=== PATIENT | male | born 1985 | race Caucasian/White ===

== ENCOUNTER 2021-01-05 14:55 | Emergency (ER) | payer OTHER, SELFPAY ==
[2021-01-05 14:57] VITALS: BP 160/103; PULSE 67; RESP 18; TEMP 36.8; O2SAT 97; BMI 24.1
--- NOTE | 2021-01-05 15:10 | ECG_ITS ---
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 Measurements Intervals [place] Rate: 62 P: 21 IN: 138 QRS: 37 QRSD: 93 T: 53 QT: 372 QTc: 380 Interpretive Statements SINUS RHYTHM NONSPECIFIC T-WAVE ABNORMALITY No previous ECG available for comparison Electronically Signed On 01-05-2021 17:42:11 VALUE STREAM MANAGER by Vilma Ott M.D. [id number] f
--- NOTE | 2021-01-05 15:10 | XR_ITS ---
WS: [id number] PORTABLE CHEST HISTORY: cp COMPARISON: None available. Lungs are clear and well expanded. No pleural effusion or pneumothorax. Cardiac size: Normal. Mediastinum/Aorta: Normal mediastinum. No osseous abnormality seen. XR/XR chest 1V portable [id number] IMPRESSION: Unremarkable portable chest.
--- NOTE | 2021-01-05 15:17 | W.ED.CHESTPA ---
HPI - Chest Pain General: Chief Complaint: Chest Pain Stated Complaint: L SHOULDER PAIN, ARM NUMBNESS X 3 DAYS Time Seen by Provider: 01/05/21 15:10 History of Present Illness: HPI narrative: The patient is a 35-year-old male with past medical history anxiety on propranolol who comes to the ER complaining of 3 days of left-sided chest pain radiating to his left arm. He says he called his primary care doctor who told him it is probably anxiety on Monday and to sleep it off. He did that but his pain persists and came to the ER because he is worried about it. He is a smoker but has no other medical problems besides anxiety. MD complaint: chest heaviness Onset: during rest Pain location: left chest Pain radiation: left arm Quality: sharp Exacerbating factors: nothing Associated symptoms: Reports no associated symptoms; Deny abdominal pain, dyspnea or palpitations Review of Systems General: Reports: 10 or more systems reviewed and unremarkable except in HPI and below Const: Denies: fatigue Eyes: Denies: change in vision, blurry vision or eye redness ENMT: Denies: throat pain, swelling of lips/tongue, ear or mastoid pain or nasal congestion Card: Denies: chest pain, palpitations, irregular heart rhythm, edema, dyspnea on exertion or orthopnea Resp: Denies: dyspnea, productive cough or non-productive cough GI: Denies: abdominal pain, diarrhea or GI cramping : Denies: flank pain, urinary frequency or urinary urgency Musc: Denies: neck pain, back pain, extremity pain, joint pain, joint redness, limited range of motion or muscle weakness Skin/Breast: Denies: rash, pruritus, erythema, skin pain or skin tenderness Neuro: Denies: headache(s), numbness in extremities, weakness in extremities, sensory changes, difficulty walking, dizziness, confusion or Slurred speech present Psych: Reports: anxiety; Denies: depression Endo: Denies: polyuria All/Imm: Denies: urticaria, throat swelling or tongue swelling Physical Exam Const: COMMON NORMALS: no acute distress, average body habitus, patient oriented x3, no limitations, healthy appearing, alert and well nourished GENERAL APPEARANCE: cooperative, comfortable, well kempt and well developed ORIENTATION/CONSCIOUSNESS: Yes awake, Yes oriented to person, Yes oriented to place and Yes oriented to time HENMT: COMMON NORMALS: normocephalic, external ears normal and Normal external nose present HEAD & SCALP: normal to inspection and normocephalic NOSE: Normal external nose present EXTERNAL EAR: Yes external ears normal MOUTH: Normal oral and palatal mucosa present THROAT: posterior oropharynx normal Eye: COMMON NORMALS: Equal, round and reactive pupils present and EOMs intact bilaterally GENERAL EYE: appearance normal, both eyes and all related structures PUPIL: Yes Equal, round and reactive pupils present Neck/C-Spine: COMMON NORMALS: full ROM, no lymphadenopathy, no meningeal signs and no JVD GENERAL: Yes normal visual inspection Lymph: LYMPHATIC: no lymphadenopathy noted Chest: COMMONS NORMALS: normal inspection of the chest and normal palpation of entire chest wall Resp: COMMON NORMALS: normal respiratory effort, No retractions, No use of accessory muscles, clear to auscultation bilaterally and percussion normal EFFORT & INSPECTION: Yes able to speak in complete sentences AUSCULTATION: clear to auscultation bilaterally PERCUSSION: percussion normal Cardio: COMMON NORMALS: no JVD, regular rate, regular rhythm, S1 normal heart sound present, S2 normal heart sound present and Peripheral pulses 2+ throughout RATE: regular rate RHYTHM: regular rhythm HEART SOUNDS: S1 normal heart sound present and S2 normal heart sound present PERIPHERAL PULSES: Peripheral pulses 2+ throughout GI: COMMON NORMALS: Normal to inspection, nondistended, normoactive bowel sounds present, Soft to palpation, non-tender and no masses INSPECTION: Yes normal to inspection PALPATION: Yes Soft to palpation : COMMON NORMALS: Yes no CVA tenderness BLADDER/KIDNEY EXAM: Yes no CVA tenderness Back/Pelvis: COMMON NORMALS: no CVA tenderness, thoracic and lumbar spine normal to inspection, no thoracic nor lumbar tenderness and thoraco-lumbar ROM normal Extremity: COMMON NORMALS: normal to inspection, full ROM, capillary refill normal, no joint enlargement and no pedal edema GENERAL: Yes normal exam except as noted Neuro: COMMON NORMALS: patient oriented x3, CN's II-XII intact bilaterally, moves all extremities, no focal motor deficits, no sensory deficits noted and gait normal SENSORIUM/ORIENTATION: Yes alert, Yes oriented to person, Yes oriented to place and Yes oriented to time MENINGEAL SIGNS: Yes no meningeal signs Psych: COMMON NORMALS: mental status grossly normal, Normal thought process present, cooperative, normal affect and speech normal APPEARANCE: Yes well kempt ATTITUDE: Yes calm SPEECH: Yes normal speech MOOD & AFFECT: Yes anxious THOUGHT PROCESS: Normal thought process present Skin: COMMON NORMALS: no rashes or lesions noted GENERAL SKIN EXAM: no rashes or lesions noted Course Vital Signs: Vital signs: Vital Signs Temperature 98.2 F 01/05/21 14:57 Pulse Rate 57 L 01/05/21 18:43 Respiratory Rate 18 01/05/21 18:43 Blood Pressure 122/91 01/05/21 18:43 Pulse Oximetry 99 01/05/21 18:43 MDM - Chest Pain MDM Narrative: Medical decision making narrative: Patient is a 35-year-old male with left-sided chest pain and history of anxiety. He has 2 normal troponins and 2 normal EKGs. 0.5 mg Ativan IV resolved his chest pain and arm tingling. We will discharge him with a small prescription. Gave him strict precautions on how to use this medicine only with severe panicky symptoms and not to expect it every day. Recommended following up with primary care physician in a few days and getting a cardiology referral at that time just to set up care. ER with worsening symptoms. Do not mix with drugs, alcohol, nor operate machinery while taking this. He is very aware of that. Lab Data: Labs: Lab Results 01/05/21 01/05/21 01/05/21 Range/Units 15:25 15:25 15:25 WBC 5.6 (4.0-10.0) 10^3/ uL RBC 5.66 H (4.1-5.3) 10^6/u L Hgb 16.0 (11.7-16.6) g/dL Hct 49.0 (42.0-52.0) % MCV 86.6 (80-94) fL MCH 28.3 (28.0-34.0) pg MCHC 32.7 (30.0-36.0) g/dL RDW 12.0 L (12.1-15.1) % Plt Count 226 (130-400) 10^3/c mm MPV 10.6 H (7.4-10.4) fL Neut % (Auto) 76.6 % Lymph % (Auto) 18.2 % Elbert % (Auto) 4.3 % Eos % (Auto) 0.5 % Baso % (Auto) 0.2 % Neut # (Auto) 4.30 (1.8-7.7) 10^3/u L Lymph # (Auto) 1.0 (0.8-4.8) 10^3/u L Elbert # (Auto) 0.2 (0.2-0.9) 10^3/u L Eos # (Auto) 0.0 (0.0-0.8) 10^3/u L Baso # (Auto) 0.0 (0.0-0.1) 10^3/u L Nucleated RBC % (a uto) 0 % Nucleated RBCs # 0.0 /100WBC D-Dimer Cancelled Sodium Cancelled Potassium Cancelled Chloride Cancelled Carbon Dioxide Cancelled Anion Gap Cancelled BUN Cancelled Creatinine Cancelled GFR Calculation Cancelled Glucose Cancelled Calculated Osmolal ity Cancelled Calcium Cancelled Total Bilirubin Cancelled AST Cancelled ALT Cancelled Alkaline Phosphata se Cancelled Troponin T Baselin e Troponin T 120 Min bishop pai[place] (0-15) ng/L Delta Troponin T (0-10) ABS# Total Protein Cancelled Albumin Cancelled Globulin Cancelled Urine Color (Yellow) Urine Appearance (CLEAR) Urine pH (5-7) Ur Specific Gravit y (1.005-1.030) Urine Protein (Negative) Urine Glucose (UA) (Normal) Urine Ketones (Negative) Urine Blood (Negative) Urine Nitrate (Negative) Urine Bilirubin (Negative) Urine Urobilinogen (Negative) mg/dL Ur Leukocyte Vickie ase (Negative) Urine Opiates Scre en (Negative) ng/mL Ur Barbiturates Sc reen (Negative) ng/mL Ur Phencyclidine S crn (Negative) ng/mL Ur Amphetamines Sc reen (Negative) ng/mL U Benzodiazepines Scrn (Negative) ng/mL Urine Cocaine Scre en (Negative) ng/mL U Marijuana (THC) Screen (Negative) ng/mL Ethyl Alcohol Cancelled 01/05/21 01/05/21 01/05/21 Range/Units 15:25 15:50 15:50 WBC (4.0-10.0) 10^3/ uL RBC (4.1-5.3) 10^6/u L Hgb (11.7-16.6) g/dL Hct (42.0-52.0) % MCV (80-94) fL MCH (28.0-34.0) pg MCHC (30.0-36.0) g/dL RDW (12.1-15.1) % Plt Count (130-400) 10^3/c mm MPV (7.4-10.4) fL Neut % (Auto) % Lymph % (Auto) % Elbert % (Auto) % Eos % (Auto) % Baso % (Auto) % Neut # (Auto) (1.8-7.7) 10^3/u L Lymph # (Auto) (0.8-4.8) 10^3/u L Elbert # (Auto) (0.2-0.9) 10^3/u L Eos # (Auto) (0.0-0.8) 10^3/u L Baso # (Auto) (0.0-0.1) 10^3/u L Nucleated RBC % (a uto) % Nucleated RBCs # /100WBC D-Dimer <= 0.27 Sodium 139 Potassium 4.2 Chloride 103 Carbon Dioxide 26 Anion Gap 14.2 BUN 13 Creatinine 0.8 GFR Calculation 108.8 Glucose 111 Calculated Osmolal ity 289 Calcium 9.4 Total Bilirubin 0.6 AST 37 ALT 50 H Alkaline Phosphata se 88 Troponin T Baselin e Cancelled Troponin T 120 Min bishop [place] (0-15) ng/L Delta Troponin T (0-10) ABS# Total Protein 7.5 Albumin 4.3 Globulin 3.2 Urine Color (Yellow) Urine Appearance (CLEAR) Urine pH (5-7) Ur Specific Gravit y (1.005-1.030) Urine Protein (Negative) Urine Glucose (UA) (Normal) Urine Ketones (Negative) Urine Blood (Negative) Urine Nitrate (Negative) Urine Bilirubin (Negative) Urine Urobilinogen (Negative) mg/dL Ur Leukocyte Vickie ase (Negative) Urine Opiates Scre en (Negative) ng/mL Ur Barbiturates Sc reen (Negative) ng/mL Ur Phencyclidine S crn (Negative) ng/mL Ur Amphetamines Sc reen (Negative) ng/mL U Benzodiazepines Scrn (Negative) ng/mL Urine Cocaine Scre en (Negative) ng/mL U Marijuana (THC) Screen (Negative) ng/mL Ethyl Alcohol < 10 01/05/21 01/05/21 01/05/21 Range/Units 15:50 15:50 15:50 WBC (4.0-10.0) 10^3/ uL RBC (4.1-5.3) 10^6/u L Hgb (11.7-16.6) g/dL Hct (42.0-52.0) % MCV (80-94) fL MCH (28.0-34.0) pg MCHC (30.0-36.0) g/dL RDW (12.1-15.1) % Plt Count (130-400) 10^3/c mm MPV (7.4-10.4) fL Neut % (Auto) % Lymph % (Auto) % Elbert % (Auto) % Eos % (Auto) % Baso % (Auto) % Neut # (Auto) (1.8-7.7) 10^3/u L Lymph # (Auto) (0.8-4.8) 10^3/u L Elbert # (Auto) (0.2-0.9) 10^3/u L Eos # (Auto) (0.0-0.8) 10^3/u L Baso # (Auto) (0.0-0.1) 10^3/u L Nucleated RBC % (a uto) % Nucleated RBCs # /100WBC D-Dimer Sodium Potassium Chloride Carbon Dioxide Anion Gap BUN Creatinine GFR Calculation Glucose Calculated Osmolal ity Calcium Total Bilirubin AST ALT Alkaline Phosphata se Troponin T Baselin e 6 Troponin T 120 Min bishop [place] (0-15) ng/L Delta Troponin T (0-10) ABS# Total Protein Albumin Globulin Urine Color Yellow (Yellow) Urine Appearance Clear (CLEAR) Urine pH 5 (5-7) Ur Specific Gravit y 1.010 (1.005-1.030) Urine Protein Neg (Negative) Urine Glucose (UA) Norm (Normal) Urine Ketones Negative (Negative) Urine Blood Neg (Negative) Urine Nitrate Negative (Negative) Urine Bilirubin Neg (Negative) Urine Urobilinogen Norm (Negative) mg/dL Ur Leukocyte Vickie ase Negative (Negative) Urine Opiates Scre en Negative (Negative) ng/mL Ur Barbiturates Sc reen Negative (Negative) ng/mL Ur Phencyclidine S crn Negative (Negative) ng/mL Ur Amphetamines Sc reen Negative (Negative) ng/mL U Benzodiazepines Scrn Negative (Negative) ng/mL Urine Cocaine Scre en Negative (Negative) ng/mL U Marijuana (THC) Screen Negative (Negative) ng/mL Ethyl Alcohol 01/05/21 Range/Units 17:35 WBC (4.0-10.0) 10^3/ uL RBC (4.1-5.3) 10^6/u L Hgb (11.7-16.6) g/dL Hct (42.0-52.0) % MCV (80-94) fL MCH (28.0-34.0) pg MCHC (30.0-36.0) g/dL RDW (12.1-15.1) % Plt Count (130-400) 10^3/c mm MPV (7.4-10.4) fL Neut % (Auto) % Lymph % (Auto) % Elbert % (Auto) % Eos % (Auto) % Baso % (Auto) % Neut # (Auto) (1.8-7.7) 10^3/u L Lymph # (Auto) (0.8-4.8) 10^3/u L Elbert # (Auto) (0.2-0.9) 10^3/u L Eos # (Auto) (0.0-0.8) 10^3/u L Baso # (Auto) (0.0-0.1) 10^3/u L Nucleated RBC % (a uto) % Nucleated RBCs # /100WBC D-Dimer Sodium Potassium Chloride Carbon Dioxide Anion Gap BUN Creatinine GFR Calculation Glucose Calculated Osmolal ity Calcium Total Bilirubin AST ALT Alkaline Phosphata se Troponin T Baselin e Troponin T 120 Min bishop [place] 6.00 (0-15) ng/L Delta Troponin T 0 (0-10) ABS# Total Protein Albumin Globulin Urine Color (Yellow) Urine Appearance (CLEAR) Urine pH (5-7) Ur Specific Gravit y (1.005-1.030) Urine Protein (Negative) Urine Glucose (UA) (Normal) Urine Ketones (Negative) Urine Blood (Negative) Urine Nitrate (Negative) Urine Bilirubin (Negative) Urine Urobilinogen (Negative) mg/dL Ur Leukocyte Vickie ase (Negative) Urine Opiates Scre en (Negative) ng/mL Ur Barbiturates Sc reen (Negative) ng/mL Ur Phencyclidine S crn (Negative) ng/mL Ur Amphetamines Sc reen (Negative) ng/mL U Benzodiazepines Scrn (Negative) ng/mL Urine Cocaine Scre en (Negative) ng/mL U Marijuana (THC) Screen (Negative) ng/mL Ethyl Alcohol Discharge Plan Discharge Patient Disposition: Home Clinical Impression: Atypical chest pain Condition: Stable Prescriptions: New Ativan 0.5 mg tablet 0.5 mg PO Q6H PRN (Reason: anxiety) Qty: 7 RF: 0 Discharge Orders: Discharge ED (Routine); Ordered 01/05/21 Ordered By: Avery Latham Referrals: Aubrey Luu MD [Primary Care Provider] - Discharge Diet: Advance as tolerated Discharge Activity: Resume usual activity Patient Instructions: Chest Pain (ED), Opioid Safety Activity Restrictions/Additional Instructions: The exact cause of your chest pain is unclear but possibly related to anxiety. Please take Ativan for only severe anxiety symptoms and do not mix with drugs, alcohol, nor operate machinery while taking this medication. Return to the ER with worsening symptoms otherwise follow-up with your primary care physician in a few days and get a referral to a channel worker at that time to set up care. Coding Level of Care Code ED Industrial Laborer for Barbara Fwd Exam Comprehensive
[2021-01-05 15:32] LABS: Basophils % 0.2 %; Eosinophils % 0.5 %; Lymphocytes % 18.2 %; Mean Corpuscular HGB Conc 32.7 g/dL (30.0-36.0); Mean Corpuscular Hemoglobin 28.3 pg (28.0-34.0); Mean Corpuscular Volume 86.6 fL (80-94); Mean Platelet Volume 10.6 fL (7.4-10.4); Monocytes # 0.2 10^3/uL (0.2-0.9); Monocytes % 4.3 %; Neutrophils % 76.6 %; Nucleated Red Blood Cells % 0 %; Platelet Count 226 10^3/cmm (130-400); Red Blood Count 5.66 10^6/uL (4.1-5.3); White Blood Count 5.6 10^3/uL (4.0-10.0)
[2021-01-05] MEDS: aspirin 81 mg Chew Tablet 324 MG PO (15:35)
[2021-01-05] MEDS: sodium chloride 0.9% 1,000 ML 999 ML IV (15:35)
[2021-01-05 15:48] VITALS: BP 134/100; PULSE 59; RESP 18; O2SAT 100
[2021-01-05 15:55] LABS: Add Urine Microscopic? NO
[2021-01-05 16:16] LABS: D Dimer <= 0.27 ug/mIFEU (0-0.59)
[2021-01-05 16:21] LABS: Troponin(5th) Baseline 6 ng/L (0-15)
[2021-01-05 16:24] LABS: Alanine Aminotransferase 50 U/L (0-41); Albumin Level 4.3 g/dL (3.5-5.2); Alkaline Phosphatase 88 IU/L (40-130); Anion Gap 14.2 (5-19); Aspartate Amino Transferase 37 U/L (0-40); Blood Urea Nitrogen 13 mg/dL (6-20); Calcium 9.4 mg/dL (8.5-10.5); Carbon Dioxide 26 mmol/L (22-29); Chloride 103 mmol/L (98-107); Globulin 3.2 g/dL (1.3-4.6); Glomerular Filtration Rate 108.8 mL/min (90-130); Glucose 111 mg/dL (65-115); Osmolality Calculated 289 mOsm/kg (285-295); Potassium 4.2 mmol/L (3.5-5.1); Sodium 139 mmol/L (136-145); Total Bilirubin 0.6 mg/dL (0.15-1.2); Total Protein 7.5 g/dL (6.6-8.7)
[2021-01-05 16:25] LABS: Alcohol Level < 10 mg/dL (0-10)
[2021-01-05 16:35] LABS: Bilirubin Urine Neg (Negative); Blood Urine Neg (Negative); Glucose Urine UA Norm (Normal); Ketones Urine Negative (Negative); Leukocyte Esterase Urine Negative (Negative); Nitrate Urine Negative (Negative); Protein Urine Neg (Negative); Urine Appearance Clear (CLEAR); Urine Color Yellow (Yellow); Urobilinogen Urine Norm (Negative); pH Urine 5 (5-7)
[2021-01-05 16:53] LABS: Amphetamines Screen Urine Negative (Negative); Barbiturates Screen Urine Negative (Negative); Benzodiazepines Screen Urine Negative (Negative); Cocaine Screen Urine Negative (Negative); Opiate Screen Urine Negative (Negative); PCP Screen Urine Negative (Negative); THC Screen Urine Negative (Negative)
--- NOTE | 2021-01-05 17:10 | ECG_ITS ---
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 Measurements Intervals [place] Rate: 52 P: 37 [place]: 137 QRS: 34 QRSD: 117 T: 64 QT: 415 QTc: 388 Interpretive Statements SINUS BRADYCARDIA MODERATE INTRAVENTRICULAR CONDUCTION DELAY [110+ ms QRS DURATION] Compared to ECG 01/05/2021 15:02:44 Intraventricular conduction delay now present Sinus rhythm no longer present T-wave abnormality no longer present Electronically Signed On 01-05-2021 21:48:53 NUMERICAL CONTROL PROGRAMMER by Vilma Ott M.D. [id number]
[2021-01-05 17:36] VITALS: BP 140/93; PULSE 60; RESP 22; O2SAT 100
[2021-01-05] MEDS: LORazepam 2 mg/mL INJ 1 mL 0.5 MG IVP (17:39)
[2021-01-05 18:19] LABS: Troponin 5 2HR Delta 0 ABS# (0-10)
[2021-01-05 18:43] VITALS: BP 122/91; PULSE 57; RESP 18; O2SAT 99
== END 2021-01-05 18:44 | disposition home or self-care (01) ==
PROVIDERS: Emergency Provider Family Medicine; PCP Family Medicine
DX: R07.89 Other chest pain (principal)
CPT/HCPCS: 36415; 71045; 80053; 80306; 80307; 81003; 84484; 85025; 85378; 93005; 96361; 96374; 99284; J2060; J7030

== ENCOUNTER 2021-11-29 09:45 | Emergency (ER) | payer OTHER, SELFPAY ==
[2021-11-29 09:50] VITALS: BP 145/96; PULSE 78; RESP 15; TEMP 37.3; O2SAT 100; BMI 25.0
--- NOTE | 2021-11-29 09:56 | XR_ITS ---
WS: [id number] XR foot LT min 3V* [id number] REASON FOR EXAM: injury/pain FINDINGS: Oblique fracture through the proximal phalanx of the left great toe without significant fracture frag ment displacement or angulation at the fracture site The remainder of the bone and joint structures of the left foot are unremarkable. XR/XR foot LT min 3V* [id number] IMPRESSION: Fracture left great toe as above.
--- NOTE | 2021-11-29 09:56 | W.ED.LOWEXIN ---
HPI - Extremity Injury (Lower) General: Chief Complaint: Extremity Injury, Lower Stated Complaint: Foot pain Time Seen by Provider: 11/29/21 09:46 Source: patient Mode of arrival: ambulatory Limitations: no limitations History of Present Illness: HPI Narrative: Patient is a nice 36-year-old male who presents to ED today along with his for concerns of a left foot injury. Patient states 2 days ago he dropped an extremely heavy tractor piece onto the foot. He was wearing boots but they were not steel toed. Patient states since then foot has been significantly tender and swollen. He is able to ambulate by placing pressure to his hind foot and lateral foot. He states most of his pain is located to the great toe/medial aspect. He is not having any ankle discomfort. He denies any abrasions/lacerations/breaks in the skin. MD complaint: foot injury Onset (ago): day(s) Injury: Left: foot Type of Injury: blunt Place: home Severity: moderate Relieving factors: immobilization Exacerbating factors: weight bearing and movement Context: direct blow Associated symptoms: Reports no associated symptoms Other symptoms: none Review of Systems Const: Denies: fever(s), chills or body aches Musc: Reports: extremity pain (L foot) and extremity swelling (L foot); Denies: joint redness or joint warmth Neuro: Reports: difficulty walking (secondary to L foot pain); Denies: numbness in extremities or sensory changes Physical Exam Const: COMMON NORMALS: no acute distress, average body habitus, patient oriented x3, no limitations, healthy appearing, alert and well nourished Extremity: GENERAL: Yes normal exam except as noted LEFT LOWER EXTREMITY: Yes foot & digits (pt has significant swelling/pain to distal 1-2 metatarsals/phalanx) Left foot and digits: Yes inspection (swelling/ecchymosis distal medial L foot), Yes neurovascular exam (normal) and Yes other (DP/PT pulses normal with normal cap refill; sensory appears intact ) Neuro: COMMON NORMALS: patient oriented x3, moves all extremities, no focal motor deficits and no sensory deficits noted SENSORIUM/ORIENTATION: Yes alert Skin: NARRATIVE SKIN EXAM: see extremity assessment for pertinent skin findings Course Vital Signs: Vital signs: Vital Signs Temperature 99.1 F 11/29/21 09:50 Pulse Rate 78 11/29/21 09:50 Respiratory Rate 15 11/29/21 09:50 Blood Pressure 145/96 11/29/21 09:50 Pulse Oximetry 100 11/29/21 09:50 MDM - Extremity Injury (Lower) MDM Narrative: Medical decision making narrative: will place in lower leg splint with toe plate; he already has crutches to use; will have CM set him up with Dr. Headley for further evaluation/treatment Imaging Data^: XR L foot: My impression: non-displaced fx of 1st proximal phalanx Radiologist's impression: [address] [place] [address] XRay Report Signed Patient: Ag Syed Unit #: [id number] : 1985 Age/Sex: 36 / M ADM Date: 11/29/21 Loc: ER Room/Bed: Attending Dr: Ordering Provider/Ordering MD: Aline Mcclellan Date of Service: 11/29/21 Procedure(s): XR foot LT min 3V* 13036 Accession Number(s): [id number] Report Number: [id number] WS: [id number] XR foot LT min 3V* [id number] REASON FOR EXAM: injury/pain FINDINGS: Oblique fracture through the proximal phalanx of the left great toe without significant fracture fragment displacement or angulation at the fracture site The remainder of the bone and joint structures of the left foot are unremarkable. XR/XR foot LT min 3V* [id number] IMPRESSION: Fracture left great toe as above. Dictated By: Federico Carrington Jr, MD Signed By: Federico Carrington Jr, MD Signed Date/Time: 11/29/21 1027 DD/ 1026 Discharge Plan Discharge Patient Disposition: Home Clinical Impression: Fracture of proximal phalanx of left great toe Qualifiers: Encounter type: initial encounter Fracture type: closed Fracture alignment: nondisplaced Qualified Code(s): S92.415A - Nondisplaced fracture of proximal phalanx of left great toe, initial encounter for closed fracture Condition: Stable Prescriptions: New hydrocodone-acetaminophen 5-325 mg tablet 1 tab PO Q4H PRN (Reason: pain) Qty: 15 RF: 0 No Action Ativan 0.5 mg tablet 0.5 mg PO Q6H PRN (Reason: anxiety) Qty: 7 RF: 0 Discharge Orders: Discharge ED (Routine); Ordered 11/29/21 Ordered By: Aline Mcclellan Referrals: Nikolay Headley DPM [Physician] - Aubrey Luu MD [Primary Care Provider] - Patient Instructions: Opioid Safety Activity Restrictions/Additional Instructions: [facility] is committed to fighting the nationwide opiate epidemic. We are providing ALL patients with information regarding opiate safety. If you received opiate pain medication during your stay or if you received a prescription for opiate pain medication-please review this handout. If not, you may disregard. Thank you. As we discussed case management should contact you shortly to set you up with your follow-up appointment with orthopedics/podiatry. Coding Level of Care Code ED Men'S Leather Dress Belt Maker for Barbara Fwd Exam Expanded Problem Focused
[2021-11-29 10:40] VITALS: BP 149/102; PULSE 85; RESP 16; O2SAT 96
--- NOTE | 2021-12-01 10:56 | DCPLANNER ---
funeral home location manager had message to schedule a follow up appointment for patient with ortho. funeral home location manager called the ortho clinic, spoke with Amara, gave clinic patients information. funeral home location manager was told that patients information would be printed and reviewed. Clinic will call patient with appointment information.
--- NOTE | 2021-12-03 07:33 | DCPLANNER ---
Patient has a follow up appointment scheduled for Friday, December 03, 2021 at 10:[address] Headley at [facility]. Clinic will call patient with appointment information.
--- NOTE | 2021-12-07 07:58 | DCPLANNER ---
Patient had a follow up appointment scheduled for 12.03.[address] Headley at [facility] - patient did attend appointment.
== END 2021-11-29 11:05 | disposition home or self-care (01) ==
PROVIDERS: Emergency Provider Physician Assistant; PCP Family Medicine
DX: S92.415A Nondisplaced fracture of proximal phalanx of left great toe, initial encounter for closed fracture (principal); W20.8XXA Other cause of strike by thrown, projected or falling object, initial encounter
CPT/HCPCS: 29515; 73630; 99283

== ENCOUNTER → 2021-12-28 13:01 | Outpatient (BNVA) | payer OTHER, SELFPAY | PROVIDERS: PCP Family Medicine; Visit Provider Podiatrist Foot & Ankle Surgery | DX: X58.XXXA Exposure to other specified factors, initial encounter; S92.412A Displaced fracture of proximal phalanx of left great toe, initial encounter for closed fracture | CPT/HCPCS: 73630 ==

== ENCOUNTER 2022-02-11 19:53 | Emergency (ER) | payer OTHER, SELFPAY ==
[2022-02-11 20:00] VITALS: BP 139/96; PULSE 89; RESP 20; TEMP 37.7; O2SAT 99; BMI 24.1
--- NOTE | 2022-02-11 20:34 | W.ED.GENADLT ---
Documented by User: Salvador Pryor MD 02/12/22 11:09 HPI - General Adult General: Chief complaint: Fever Stated complaint: High Fever\Headaches Time Seen by Provider: 02/11/22 20:12 History of Present Illness: Patient is a 37-year-old male with history of COVID in November presenting to the emergency room for evaluation of fever x5 days. Patient tells me that on Monday, he had generalized body aches and neck pain with fever. Since then, patient only has frontal headache with fever. Patient has mild cough on Monday only. Patient denies any rashes, any nausea/vomiting, diarrhea, melena hematochezia. Patient denies any active productive cough, sore throat, nasal congestion or other URI symptoms. Patient has not been in contact with anybody was sick in sickness. Patient denies any new rash, travels to the [place] or, recent contact with fever or respiratory symptoms. Since Monday, patient has bifrontal headache. Denies any neck pain with range of motion or movement. Patient has no history of immunosuppression including HIV, diabetes, transplant, asplenia or other issues. Onset: 5 days ago Duration:5 days Location:home Severity:moderate Associated symptoms: Deny chest pain, dyspnea, nausea, rash, palpitations or vomiting Review of Systems Const: Reports: body aches; Denies: fever(s) or chills Eyes: Denies: change in vision ENMT: Denies: mouth pain Card: Denies: chest pain or palpitations Resp: Denies: dyspnea or non-productive cough GI: Denies: abdominal pain, nausea, vomiting or diarrhea : Denies: dysuria Musc: Denies: extremity pain Skin/Breast: Denies: rash or new lesions Neuro: Reports: other (+headache); Denies: weakness in extremities Psych: Reports: other (Normal mood) James/Lymph: Denies: easy bruising PFSH ED PFSH: Medical History (Updated 02/12/22 @ 00:41 by Juma Beavers DO) Toe fracture Social History (Updated 02/11/22 @ 20:37 by Salvador Pryor MD) Smoking and tobacco status: never smoked Alcohol intake: never Substance/Drug Use: never Physical Exam Const: COMMON NORMALS: alert HENMT: COMMON NORMALS: atraumatic HEAD & SCALP: atraumatic MOUTH: moist mucous membranes not abnormal Eye: COMMON NORMALS: EOMs intact bilaterally and conjunctivae normal CONJUNCTIVA: Yes conjunctivae normal Neck/C-Spine: COMMON NORMALS: full ROM and supple OTHER: no meningismus signs Resp: COMMON NORMALS: normal respiratory effort and clear to auscultation bilaterally AUSCULTATION: clear to auscultation bilaterally Cardio: COMMON NORMALS: regular rate RATE: regular rate GI: COMMON NORMALS: Soft to palpation and non-tender PALPATION: Yes Soft to palpation Extremity: COMMON NORMALS: full ROM Neuro: SENSORIUM/ORIENTATION: Yes alert MOTOR EXAM: No Abnormal motor strength present and Other motor observations present (no focal motor deficits) Psych: COMMON NORMALS: speech normal SPEECH: Yes normal speech MOOD & AFFECT: Yes euthymic mood Skin: NARRATIVE SKIN EXAM: no visible rashes Course Vital Signs: Vital signs: Vital Signs Temperature 99.9 F H 02/11/22 20:00 Pulse Rate 72 02/12/22 00:54 Respiratory Rate 17 02/12/22 00:54 Blood Pressure 124/86 02/12/22 00:54 Pulse Oximetry 98 02/12/22 00:54 [facility] - General Adult Medical Decision Making 37-year-old male with a history of COVID presenting to the emergency room for evaluation of fever and headache x5 days. Patient had mild cough and generalized body aches on Monday only. On exam, patient is afebrile. No nuchal rigidity. No visible rashes. No other focal complaints today. Lab work-up negative for any acute findings including manual differential. COVID/RSV pending. Lab Data : 02/11/22 20:35 02/11/22 20:[address] 02/11/22 22:31 IMPRESSION: No acute intracranial abnormality. Mild sinusitis. Laboratory Results WBC 7.4 10^3/uL (4.0-10.0) 02/11/22 20:35 RBC 5.07 10^6/uL (4.1-5.3) 02/11/22 20:35 Hgb 14.1 g/dL (11.7-16.6) 02/11/22 20:35 Hct 43.0 % (42.0-52.0) 02/11/22 20:35 MCV 84.8 fl (80-94) 02/11/22 20:35 MCH 27.8 pg (28.0-34.0) L 02/11/22 20:35 MCHC 32.8 g/dL (30.0-36.0) 02/11/22 20: RDW 12.5 % (12.1-15.1) 02/11/22 20:35 Plt Count 233 10^3/cmm (130-400) 02/11/22 20: MPV 10.4 fL (7.4-10.4) 02/11/22: Total Counted 100 (0-100) 02/11/22 20: Atypical Lymphs % 0.0 % (0-5) 02/11/22:35 Absolute Neutrophils 6.2 10^3/cmm (1.4-6.5) 02/11/22 20:35 Segmented Neutrophils 82 % 02/11/22:35 Abs Segm Neuts (Man) 6.1 10/cmm (1.6-7.1) 02/11/22 20:35 Band Neutrophils 2.0 % 02/11/22 20: Abs Band Neuts (Man) 0.1 10^3/cmm (0.0-1.2) 02/11/22 20:35 Absolute Lymphocytes 1.0 10^3/cmm (1.2-3.4) L 02/11/22 20:35 Lymphocytes (Manual) 14 % 02/11/22 20:35 Monocytes (Manual) 2.0 % 02/11/22 20:35 Absolute Monocytes 0.1 10^3/cmm (0.1-0.6) 02/11/22 20:35 Eosinophils (Manual) 0 % 02/11/22 20:35 Absolute Eosinophils 0.0 10^3/cmm (0.0-0.7) 02/11/22 20:35 Basophils (Manual) 0.0 % 02/11/22 20:35 Absolute Basophils 0.0 10^3/cmm (0.0-0.2) 02/11/22 20:35 Platelet Estimate Normal (Normal) 02/11/22 20:35 Sodium 138 mmol/L (136-145) 02/11/22 20:35 Potassium 3.3 mmol/L (3.5-5.1) L 02/11/22 20:35 Chloride 102 mmol/L (98-107) 02/11/22 20:35 Carbon Dioxide 24 mmol/L (22-29) 02/11/22 20:35 Anion Gap 15.3 (5-19) 02/11/22 20:35 BUN 8 mg/dL (6-20) 02/11/22 20:35 Creatinine 0.9 mg/dL (0.7-1.2) 02/11/22 20:35 GFR Calculation 93.9 mL/min (90-130) 02/11/22 20:35 Glucose 141 mg/dL (65-115) H 02/11/22 20:35 Calculated Osmolality 287 mOsm/kg (285-295) 02/11/22:35 Calcium 9.8 mg/dL (8.5-10.5) 02/11/22 20:35 Nasal Influ A H1 2009 PCR Not detected (NOT DETECT) 02/11/22 20:35 RSV Nasal Swab Cancelled 02/11/22 20:35 RSV Nasal Swab Int Cntl Cancelled 02/11/22 20:35 Adenovirus (PCR) Cancelled 02/11/22 20:35 Adenovirus (PCR) Not detected (NOT DETECT) 02/11/22 20:35 C. pneumoniae DNA (PCR) Not detected (NOT DETECT) 02/11/22 20:35 Coronavirus 229E (PCR) Not detected (NOT DETECT) 02/11/22 20:35 Human Metapneumovir PCR Cancelled 02/11/22 20:35 Human Metapneumovir PCR Not detected (NOT DETECT) 02/11/22 20:35 Influenza A (RT-PCR) Cancelled 02/11/22 20:35 Influenza A (H1) PCR Cancelled 02/11/22 20:35 Influenza A (H1) PCR Not detected (NOT DETECT) 02/11/22 20:35 Influenza A (H3) PCR Cancelled 02/11/22 20:35 Influenza A (H3) PCR Not detected (NOT DETECT) 02/11/22 20:35 Influenza Type A Ag Negative (Negative) 02/11/22 20:35 Influenza Type A (PCR) Not detected (NOT DETECT) 02/11/22 20:35 Influenza Type B Ag Negative (Negative) 02/11/22 20:35 Influenza B (RT-PCR) Cancelled 02/11/22 20:35 Influenza Type B (PCR) Not detected (NOT DETECT) 02/11/22 20:35 M. pneumoniae (PCR) Not detected (NOT DETECT) 02/11/22 20:35 Parainfluenzae Type 1 Cancelled 02/11/22 20:35 Parainfluenza 1 (PCR) Not detected (NOT DETECT) 02/11/22 20:35 Parainfluenzae Type 2 Cancelled 02/11/22 20:35 Parainfluenza 2 (PCR) Not detected (NOT DETECT) 02/11/22 20:35 Parainfluenzae Type 3 Cancelled 02/11/22 20:35 Parainfluenza 3 (PCR) Not detected (NOT DETECT) 02/11/22 20:35 Parainfluenza 4 (PCR) Not detected (NOT DETECT) 03 20:35 RSV Ab Comment Cancelled 02/11/22 20:35 RSV Type A (PCR) Not detected (NOT DETECT) 02/11/22 20:35 RSV Type B (PCR) Not detected (NOT DETECT) 02/11/22 20:35 Rhinovirus (PCR) Cancelled 02/11/22 20:35 Entero/Rhino (PCR) Not detected (NOT DETECT) 02/11/22 20:35 SARS-CoV-2 (PCR) Not detected (NOT DETECT) 02/11/22 20:35 Discharge Plan Discharge Patient Disposition: Home Clinical Impression: Fever, Headache, Body aches, Sinusitis, acute Condition: Stable Prescriptions: New Augmentin 875-125 mg tablet 1 tab PO BID Qty: 14 0RF No Action propranolol 20 mg tablet 20 mg PO DAILY 0RF Discharge Orders: Discharge ED (Routine); Ordered 02/12/22 Ordered By: Juma Beavers Referrals: Aubrey Luu MD [Primary Care Provider] - 4-7 days Discharge Diet: Advance as tolerated Discharge Activity: Increase activity as tolerated Patient Instructions: Sinusitis (ED) Activity Restrictions/Additional Instructions: Return for fever despite 2-3 doses of antibiotics, worsening headache, mental status changes, neck or back aches, any other concerning symptoms. Coding Level of Care Code ED Test Desk Operator for Chg Fwd Exam Comprehensive Documented by User: Juma Beavers DO 02/12/22 01:50 HPI - General Adult General: Chief complaint: Fever Stated complaint: High Fever\Headaches Time Seen by Provider: 02/11/22 20:12 [facility] PFSH: Medical History (Updated 02/12/22 @ 00:41 by Juma Beavers DO) Toe fracture Social History (Updated 02/11/22 @ 20:37 by Salvador Pryor MD) Smoking and tobacco status: never smoked Alcohol intake: never Substance/Drug Use: never Course Vital Signs: Vital signs: Vital Signs Temperature 99.9 F H 02/11/22 20:00 Pulse Rate 72 02/12/22 00:54 Respiratory Rate 17 02/12/22 00:54 Blood Pressure 124/86 02/12/22 00:54 Pulse Oximetry 98 02/12/22 00:54 MDM - General Adult Medical Decision Making 37-year-old male with a history of COVID presenting to the emergency room for evaluation of fever and headache x5 days. Patient had mild cough and generalized body aches on Monday only. On exam, patient is afebrile. No nuchal rigidity. No visible rashes. No other focal complaints today. Lab work-up negative for any acute findings including manual differential. COVID/RSV pending. Mr. Syed was checked out to me by Dr. Beltran at shift change. His CBC is normal. His potassium is mildly low, otherwise BMP is normal. He is feeling better after IV fluids. On reexamination, the patient has no nuchal rigidity, no meningeal signs whatsoever. His headache is improved. Given headache and fever without cause on laboratory including respiratory panel, lumbar puncture was offered. The patient declined. Yield would likely be low. Head CT is negative, save some mild sinusitis Which could actually be a cause of his pain. He will be treated for acute sinusitis. He states again that he has no tick bites. He knows to return for any worsening of his symptoms. Lab Data : 02/11/22 20:35 02/11/22 20:[address] 02/11/22 22:31 IMPRESSION: No acute intracranial abnormality. Mild sinusitis. Laboratory Results WBC 7.4 10^3/uL (4.0-10.0) 02/11/22 20:35 RBC 5.07 10^6/uL (4.1-5.3) 02/11/22 20:35 Hgb 14.1 g/dL (11.7-16.6) 02/11/22 20: Hct 43.0 % (42.0-52.0) 02/11/22: MCV 84.8 fl (80-94) 02/11/22 20: MCH 27.8 pg (28.0-34.0) L 02/11/22: MCHC 32.8 g/dL (30.0-36.0) 02/11/22: RDW 12.5 % (12.1-15.1) 02/11/22 20: Plt Count 233 10^3/cmm (130-400) 02/11/22: MPV 10.4 fL (7.4-10.4) 02/11/22 20:35 Total Counted 100 (0-100) 02/11/22 20: Atypical Lymphs % 0.0 % (0-5) 02/11/22 20:35 Absolute Neutrophils 6.2 10^3/cmm (1.4-6.5) 02/11/22 20:35 Segmented Neutrophils 82 % 02/11/22 20: Abs Segm Neuts (Man) 6.1 10/cmm (1.6-7.1) 02/11/22 20:35 Band Neutrophils 2.0 % 02/11/22 20:35 Abs Band Neuts (Man) 0.1 10^3/cmm (0.0-1.2) 02/11/22 20:35 Absolute Lymphocytes 1.0 10^3/cmm (1.2-3.4) L 02/11/22 20:35 Lymphocytes (Manual) 14 % 02/11/22 20:35 Monocytes (Manual) 2.0 % 02/11/22 20:35 Absolute Monocytes 0.1 10^3/cmm (0.1-0.6) 02/11/22 20:35 Eosinophils (Manual) 0 % 02/11/22 20:35 Absolute Eosinophils 0.0 10^3/cmm (0.0-0.7) 02/11/22 20:35 Basophils (Manual) 0.0 % 02/11/22: Absolute Basophils 0.0 10^3/cmm (0.0-0.2) 02/11/22 20:35 Platelet Estimate Normal (Normal) 02/11/22 20:35 Sodium 138 mmol/L (136-145) 02/11/22:35 Potassium 3.3 mmol/L (3.5-5.1) L 02/11/22:35 Chloride 102 mmol/L (98-107) 02/11/22:35 Carbon Dioxide 24 mmol/L (22-29) 02/11/22: Anion Gap 15.3 (5-19) 02/11/22 20: BUN 8 mg/dL (6-20) 02/11/22 20:35 Creatinine 0.9 mg/dL (0.7-1.2) 02/11/22:35 GFR Calculation 93.9 mL/min (90-130) 02/11/22 20: Glucose 141 mg/dL (65-115) H 02/11/22 20:35 Calculated Osmolality 287 mOsm/kg (285-295) 02/11/22:35 Calcium 9.8 mg/dL (8.5-10.5) 02/11/22 20:35 Nasal Influ A H1 2009 PCR Not detected (NOT DETECT) 02/11/22 20:35 RSV Nasal Swab Cancelled 02/11/22 20:35 RSV Nasal Swab Int Cntl Cancelled 02/11/22 20:35 Adenovirus (PCR) Cancelled 02/11/22 20:35 Adenovirus (PCR) Not detected (NOT DETECT) 02/11/22 20:35 C. pneumoniae DNA (PCR) Not detected (NOT DETECT) 02/11/22 20:35 Coronavirus 229E (PCR) Not detected (NOT DETECT) 02/11/22 20:35 Human Metapneumovir PCR Cancelled 02/11/22 20:35 Human Metapneumovir PCR Not detected (NOT DETECT) 02/11/22 20:35 Influenza A (RT-PCR) Cancelled 02/11/22 20:35 Influenza A (H1) PCR Cancelled 02/11/22 20:35 Influenza A (H1) PCR Not detected (NOT DETECT) 02/11/22 20:35 Influenza A (H3) PCR Cancelled 02/11/22 20:35 Influenza A (H3) PCR Not detected (NOT DETECT) 02/11/22 20:35 Influenza Type A Ag Negative (Negative) 02/11/22 20:35 Influenza Type A (PCR) Not detected (NOT DETECT) 02/11/22 20:35 Influenza Type B Ag Negative (Negative) 02/11/22 20:35 Influenza B (RT-PCR) Cancelled 02/11/22 20:35 Influenza Type B (PCR) Not detected (NOT DETECT) 02/11/22 20:35 M. pneumoniae (PCR) Not detected (NOT DETECT) 02/11/22 20:35 Parainfluenzae Type 1 Cancelled 02/11/22 20:35 Parainfluenza 1 (PCR) Not detected (NOT DETECT) 02/11/22 20:35 Parainfluenzae Type 2 Cancelled 02/11/22 20:35 Parainfluenza 2 (PCR) Not detected (NOT DETECT) 02/11/22 20:35 Parainfluenzae Type 3 Cancelled 02/11/22 20:35 Parainfluenza 3 (PCR) Not detected (NOT DETECT) 02/11/22 20:35 Parainfluenza 4 (PCR) Not detected (NOT DETECT) 02/11/22 20:35 RSV Ab Comment Cancelled 02/11/22 20:35 RSV Type A (PCR) Not detected (NOT DETECT) 02/11/22 20:35 RSV Type B (PCR) Not detected (NOT DETECT) 02/11/22 20:35 Rhinovirus (PCR) Cancelled 02/11/22 20:35 Entero/Rhino (PCR) Not detected (NOT DETECT) 02/11/22 20:35 SARS-CoV-2 (PCR) Not detected (NOT DETECT) 02/11/22 20:35 Discharge Plan Discharge Patient Disposition: Home Clinical Impression: Fever, Headache, Body aches, Sinusitis, acute Condition: Stable Prescriptions: New Augmentin 875-125 mg tablet 1 tab PO BID Qty: 14 0RF No Action propranolol 20 mg tablet 20 mg PO DAILY 0RF Discharge Orders: Discharge ED (Routine); Ordered 02/12/22 Ordered By: Juma Beavers Referrals: Aubrey Luu MD [Primary Care Provider] - 4-7 days Discharge Diet: Advance as tolerated Discharge Activity: Increase activity as tolerated Patient Instructions: Sinusitis (ED) Activity Restrictions/Additional Instructions: Return for fever despite 2-3 doses of antibiotics, worsening headache, mental status changes, neck or back aches, any other concerning symptoms. Coding Level of Care Code ED Test Desk Operator for Chg Fwd Exam Comprehensive
[2022-02-11] MEDS: acetaminophen 500 mg Tablet 1000 MG PO (20:43)
[2022-02-11] MEDS: sodium chloride 0.9% 500 ML IV (20:45)
[2022-02-11 20:48] LABS: Hemoglobin 14.1 g/dL (11.7-16.6); Mean Corpuscular HGB Conc 32.8 g/dL (30.0-36.0); Mean Corpuscular Hemoglobin 27.8 pg (28.0-34.0); Mean Corpuscular Volume 84.8 fl (80-94); Mean Platelet Volume 10.4 fL (7.4-10.4); Platelet Count 233 10^3/cmm (130-400); Red Blood Count 5.07 10^6/uL (4.1-5.3); Red Cell Distribution Width 12.5 % (12.1-15.1); White Blood Count 7.4 10^3/uL (4.0-10.0)
[2022-02-11 21:03] LABS: Total Cells Counted 100 (0-100)
[2022-02-11 21:04] LABS: Anion Gap 15.3 (5-19); Blood Urea Nitrogen 8 mg/dL (6-20); Calcium 9.8 mg/dL (8.5-10.5); Carbon Dioxide 24 mmol/L (22-29); Chloride 102 mmol/L (98-107); Glomerular Filtration Rate 93.9 mL/min (90-130); Glucose 141 mg/dL (65-115); Osmolality Calculated 287 mOsm/kg (285-295); Potassium 3.3 mmol/L (3.5-5.1); Sodium 138 mmol/L (136-145)
[2022-02-11 21:06] LABS: Absolute Neutrophil 6.2 10^3/cmm (1.4-6.5); Absolute Segmented Neutrophil 6.1 10/cmm (1.6-7.1); Band Neutrophils Absolute 0.1 10^3/cmm (0.0-1.2); Eosinophils 0 %; Lymphocytes 14 %; Monocytes Absolute 0.1 10^3/cmm (0.1-0.6); Platelet Estimate Normal (Normal); Segmented Neutrophils 82 %
[2022-02-11 21:10] LABS: Influenza A by IFA Negative (Negative); Influenza B by IFA Negative (Negative)
[2022-02-11 22:30] LABS: Adenovirus Not Detected (NOT DETECT); Chlamydia Pneumoniae Not Detected (NOT DETECT); Coronavirus 229E,HKU1,NL63,OC4 Not Detected (NOT DETECT); Human Metapneumovirus Not Detected (NOT DETECT); Human Rhinovirus/Enterovirus Not Detected (NOT DETECT); Influenza A Not Detected (NOT DETECT); Influenza A H1 Not Detected (NOT DETECT); Influenza A H1-2009 Not Detected (NOT DETECT); Influenza A H3 Not Detected (NOT DETECT); Influenza B Not Detected (NOT DETECT); Mycoplasma Pneumoniae Not Detected (NOT DETECT); Parainfluenza Virus Type 1 Not Detected (NOT DETECT); Parainfluenza Virus Type 2 Not Detected (NOT DETECT); Parainfluenza Virus Type 3 Not Detected (NOT DETECT); Parainfluenza Virus Type 4 Not Detected (NOT DETECT); Respiratory Syncytial Virus A Not Detected (NOT DETECT); Respiratory Syncytial Virus B Not Detected (NOT DETECT); SARS-COV-2 Not Detected (NOT DETECT)
--- NOTE | 2022-02-11 22:31 | CTR_ITS ---
PROCEDURE INFORMATION: Exam: CT Head Without Contrast Exam date and time: 02/11/2022 11:03 PM Age: 37 years old Clinical indication: Pain; Headache not specified; Patient HX: C/O frontal DUMONT w fever all week; Additional info: Frontal headache and fever TECHNIQUE: Imaging protocol: Computed tomography of the head without contrast. Radiation optimization: All CT scans at this facility use at least one of these dose optimization techniques: automated exposure control; mA and/or kV adjustment per patient size (includes targeted exams where dose is matched to clinical indication); or iterative reconstruction. COMPARISON: No relevant prior studies available. RADIATION DOSE METRICS: Total DLP (mGy-cm): 916.63 FINDINGS: Brain: Normal. No hemorrhage. Unremarkable white matter. No mass effect. Cerebral ventricles: No ventriculomegaly. Paranasal sinuses: Mild left posterior ethmoid sinusitis is appreciated. Mastoid air cells: Visualized mastoid air cells are well aerated. Bones/joints: Unremarkable. No acute fracture. Soft tissues: Unremarkable. CT/CT head wo con* [id number] IMPRESSION: No acute intracranial abnormality. Mild sinusitis.
[2022-02-11 23:57] VITALS: BP 107/77; PULSE 67; O2SAT 97
[2022-02-12] MEDS: dexamethasone 10 mg/mL INJ 6 MG IVP (00:47)
[2022-02-12] MEDS: amoxicillin-clav 875-125 mg Tablet 1 TAB PO (00:50)
[2022-02-12 00:54] VITALS: BP 124/86; PULSE 72; RESP 17; O2SAT 98
== END 2022-02-12 00:56 | disposition home or self-care (01) ==
PROVIDERS: Emergency Provider Emergency Medicine; PCP Family Medicine
DX: R50.9 Fever, unspecified (principal); R51.9 Headache, unspecified; R52 Pain, unspecified; J01.90 Acute sinusitis, unspecified
CPT/HCPCS: 70450; 80048; 85007; 85027; 87486; 87581; 87633; 87804; 96361; 96374; 99284; J1100; J7040